=== PATIENT | male | born 1950 | race Caucasian/White ===

== ENCOUNTER 2018-01-09 06:44 | Day surgery (SDC) | payer OTHER ==
[2018-01-09] MEDS ORDERED: PROPOFOL 40 ML (07:51)
== END 2018-01-09 13:10 | disposition home or self-care (01) ==
LOC: GIL 06:44
DX: Z12.11 Encounter for screening for malignant neoplasm of colon (principal); K29.70 Gastritis, unspecified, without bleeding; K44.9 Diaphragmatic hernia without obstruction or gangrene; K29.80 Duodenitis without bleeding; K64.4 Residual hemorrhoidal skin tags; E03.9 Hypothyroidism, unspecified
CPT/HCPCS: 43239; 88305; 88312